=== PATIENT | male | born 1965 | race Caucasian/White ===

== ENCOUNTER 2019-02-12 10:10 | Emergency (ER) | payer BC, OTHER ==
[2019-02-12 10:27] VITALS: BP 141/83; PULSE 69; TEMP 98.5; BMI 21.6
[2019-02-12] MEDS ORDERED: SODIUM CHLORIDE 0.9% 1000 ML INFUS.BAG IV ONE (10:35)
[2019-02-12] MEDS ORDERED: methylPREDNISolone NA SUCC 125 MG/2 ML VIAL IVPB ONE (10:35)
[2019-02-12] MEDS ORDERED: FAMOTIDINE 20 MG/50 ML IVPB 20 MG/50 ML MG IVPB ONE ×2 (10:35→10:40)
[2019-02-12] MEDS ORDERED: methylPREDNISolone NA SUCC 125 MG/2 ML VIAL ONE (10:40)
[2019-02-12 11:17] LABS: BILIRUBIN,TOTAL 1.6 mg/dl (0.2-1); CALCIUM 9.5 mg/dl (8.5-10); CREATININE 0.8 mg/dl (0.55-1.3); POTASSIUM 4.6 mmol/L (3.5-5.1)
--- NOTE | 2019-02-12 11:25 | PDOC ---
History of Present Illness - General Chief Complaint: Poison Sullivan,Poison Olivia Exposure Stated Complaint: ITCHY, RED RASH Time Seen by Provider: 02/12/19 10:12 - History of Present Illness Initial Comments: 02/12/19 11:25 53yo male with no pmhx presents ambulatory for eval of a red rash that has been worsening since early last week. States he was outside gardening. States he was weeding and was pulling at olivia. States that night his arm felt itchy and his leg. States the next day he developed worsening redness and a rash. Pt was seen at [facility] and given a medrol dose pack, pepcid, and triamcinolone cream. Pt states he has been using the meds, but the rash seems to be spreading and he is more itchy. Pt denies f/c. No pain, only pruritis. No vesicles or pustules. No drainage. Rash was to R forearm and R knee - now with patchy areas to L forearm and L leg. Also along lower abd. 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 Pt denies swelling. Pmhx: denies Pshx: bicep tendon repair all: nkda Past History - Past Medical History Allergies/Adverse Reactions: Allergies Allergy/AdvReac Type Severity Reaction Status Date / Time No Known Allergies Allergy Verified 02/12/19 10:12 Home Medications: Ambulatory Orders Famotidine [Pepcid -] 20 mg PO DAILY 02/12/19 Hydrocortisone 1% Cream [Hytone 1% Cream -] 1 applic TP BID #1 tube 02/12/19 Methylprednisolone [Medrol Dose Desean] 4 mg PO ASDIR 02/12/19 Methylprednisolone [Medrol Dose Desean] 4 mg PO ASDIR #21 tablet 02/12/19 Prednisone [Prednisone 50 MG TABLETS] 50 mg PO DAILY #4 tablet 02/12/19 Triamcinolone 0.025% Cream [Aristocort 0.025% Cream -] 1 applic TP DAILY COPD: No Other medical history: pt denies - Suicide/Smoking/Psychosocial Hx Smoking History: Former smoker Have you smoked in the past 12 months: No Information on smoking cessation initiated: No Hx Alcohol Use: No Review of Systems - Review of Systems Able to Perform ROS?: Yes Is the patient limited Croatian proficient: No Constitutional: No: Chills, Fever HEENTM: No: Nose Pain, Nose Congestion, Throat Pain, Throat Swelling Respiratory: No: Cough, Shortness of Breath, SOB at Rest Cardiac (ROS): No: Chest Pain ABD/GI: No: Diarrhea, Nausea, Vomiting, Abdominal cramping : No: Burning, Dysuria Musculoskeletal: No: Joint Swelling, Muscle Pain Integumentary: Yes: Erythema, Rash, Other (erythematous papular rash to arms, legs, and lower abd ) All Other Systems: Reviewed and Negative *Physical Exam - Vital Signs Last Vital Signs Temp Pulse Resp BP Pulse Ox 98.5 F 69 18 141/83 97 02/12/19 10:10 02/12/19 10:10 02/12/19 10:10 02/12/19 10:10 02/12/19 10:10 - Physical Exam General Appearance: Yes: Nourished, Appropriately Dressed. No: Apparent Distress HEENT: positive: EOMI, KAISER, Normal ENT Inspection, Normal Voice, Pharynx Normal , Other (no papules, pustules, rash inside mouth or soft palate) Neck: positive: Supple. negative: Decreased range of motion Respiratory/Chest: positive: Lungs Clear, Normal Breath Sounds. negative: Respiratory Distress, Stridor, Wheezing Cardiovascular: positive: Regular Rhythm, Regular Rate, S1, S2. negative: Edema Gastrointestinal/Abdominal: positive: Normal Bowel Sounds, Flat, Soft, Other ( papular erythematous rash over lower abd). negative: Guarding, Rebound, Tenderness Musculoskeletal: positive: Normal Inspection. negative: CVA Tenderness Extremity: positive: Normal Range of Motion, Other (erythematous papular rash to b/l forearms and knees b/l). negative: Swelling, Calf Tenderness Integumentary: positive: Dry, Rash, Other (no urticaria, no vesicles, no pustules, +erythematous papular rash to arms and legs and lower abd). 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 negative: Sensory Deficit ED Treatment Course - LABORATORY CBC & Chemistry Diagram: 02/12/19 10:50 02/12/19 10:50 - ADDITIONAL ORDERS Additional order review: Laboratory Results 02/12/19 10:50 Sodium 133 L Potassium 4.6 Chloride 98 Carbon Dioxide 30 Anion Gap 5 L BUN 24.0 H Creatinine 0.8 Est GFR (CKD-EPI)AfAm 116.56 Est GFR (CKD-EPI)NonAf 100.57 Random Glucose 108 H Calcium 9.5 Total Bilirubin 1.6 H AST 27 ALT 26 Alkaline Phosphatase 48 Total Protein 8.0 Albumin 5.0 - Medications Given in the ED: ED Medications Discontinued Medications Generic Name Dose Route Start Last Admin Trade Name Rosangela PRN Reason Stop Dose Admin Diphenhydramine HCl 25 mg 02/12/19 10:35 02/12/19 10:50 Benadryl Injection - IVPUSH 02/12/19 10:36 25 mg ONCE ONE Administration Famotidine/Sodium Chloride 20 mg in 50 mls @ 100 mls/hr 02/12/19 10:35 11:00 Pepcid 20 Mg Premixed Ivpb - IVPB 02/12/19 11:04 100 mls/hr ONCE ONE Administration Methylprednisolone Sodium Succinate 125 mg 02/12/19 10:35 02/12/19 10:55 Solu-Medrol - IVPB 02/12/19 10:36 125 mg ONCE ONE Administration Sodium Chloride 1,000 ml 02/12/19 10:35 02/12/19 10:50 Normal Saline - IV 02/12/19 10:36 1,000 ml ONCE ONE Administration Medical Decision Making - Medical Decision Making 02/12/19 11:36 a/p: 53yo male with spreading erythematous papular rash -consist with contact dermatitis -will check labs -no pustules or vesicles or drainage of fluid -will give iv steroids, benadryl, pepcid -will monitor and reassess 02/12/19 12:06 labs reviewed no elevated wbc mild dehydration ivf hydration running 02/12/19 13:11 pt feeling better will follow up with dr. prasad at [facility] discused steroids as outpt answered all questions stable for dc to home dsicussed washing clothes and sheets from the exposure discussed contact dermatitis *DC/Admit/Observation/Transfer Diagnosis at time of Disposition: Contact dermatitis - Discharge Dispostion Disposition: HOME Condition at time of disposition: Stable Decision to Admit order: No - Prescriptions Prescriptions: Hydrocortisone 1% Cream [Hytone 1% Cream -] 1 applic TP BID #1 tube Methylprednisolone [Medrol Dose Desean] 4 mg PO ASDIR #21 tablet Prednisone [Prednisone 50 MG TABLETS] 50 mg PO DAILY #4 tablet - Referrals Referrals: Matty WORRELL, Dr. Jones [Other] Daphne Mendoza [Staff Physician] - - Patient Instructions Printed Discharge Instructions: DI for Contact Dermatitis Additional Instructions: Please take the 50mg prednisone daily for 4 more days. Start it tomorrow. When finished please take the medrol dose pack to slowly taper off the steroids. Please make an appointment to see your PMD. Please also make an appointment to see the bricklayer tender. Please return to the ED with any further concerns or complaints. - Post Discharge Activity
[2019-02-12 11:27] LABS: BASO % 0.5 % (0-2.0); HEMATOCRIT 45.2 % (35.4-49); HEMOGLOBIN 15.5 GM/dl (11.7-16.9); LYMPH % 21.8 % (8-40); MCH 30.9 pg (25.7-33.7); MCHC 34.3 g/dl (32.0-35.9); MEAN CELL VOLUME 90.2 fl (80-96); MEAN PLT VOLUME 8.1 fl (7.5-11.1); MONO % 7.9 % (3.8-10.2); NEUT % 68.8 % (42.8-82.8); PLATELET COUNT 260 K/MM3 (134-434); RBC 5.02 M/mm3 (4.00-5.60); RDW 11.7 % (11.9-15.9); WHITE BLOOD COUNT 7.7 K/mm3 (4.0-10.8)
== END 2019-02-12 13:22 | disposition home or self-care (01) ==
LOC: FER 10:10
PROC: 3E0337Z Introduction of Electrolytic and Water Balance Substance into Peripheral Vein, Percutaneous Approach (ICD-10-PCS; principal; 2019-02-12)
PROC: 3E033GC Introduction of Other Therapeutic Substance into Peripheral Vein, Percutaneous Approach (ICD-10-PCS; 2019-02-12)
DX: L25.9 Unspecified contact dermatitis, unspecified cause (principal); Z87.891 Personal history of nicotine dependence
CPT/HCPCS: 36415; 80053; 85025; 99282-25; J7030